=== PATIENT | female | born 1950 | race Caucasian/White ===

== ENCOUNTER 2017-02-23 03:29 | Emergency (ER) | payer OTHER ==
[~2017-02-23] VITALS: Ht 162.6 cm; Wt 69.5 kg
[~2017-02-23 03:29] MED LIST: IMIPRAMINE HCL25 MG PO; NEXIUM40 MG PO; RANITIDINE HCL150 MG PO; TOPIRAMATE25 MG PO; TYLENOL WITH C1 EACH PO
[2017-02-23 04:28] LABS: ALBUMIN 3.8 g/dL (3.2-4.8)
[2017-02-23 04:29] LABS: CHLORIDE 103 mEq/L (99-109); POTASSIUM 3.9 mEq/L (3.7-5.4); SODIUM 138 mEq/L (136-147)
[2017-02-23 04:30] LABS: PLATELET COUNT 723 K/uL (156-360)
[2017-02-23 04:31] LABS: GLUCOSE 195 mg/dL (70-99); TOTAL PROTEIN 7.3 g/dL (6.4-8.3)
[2017-02-23 04:33] LABS: TOTAL BILIRUBIN 0.4 mg/dL (0.0-1.0)
[2017-02-23 04:33] LABS: HEMATOCRIT 39.1 % (36.0-46.0); HEMOGLOBIN 13.1 G/DL (11.9-15.5); MCH 30.5 PG (29.0-34.0); MCHC 33.5 G/DL (30.0-36.0); MCV 91.1 FL (83-99); RBC DIS.WIDTH-CV 13.5 % (11.8-14.6); RBC DIS.WIDTH-SD 44.9 % (39-53); RED BLOOD COUNT 4.29 M/uL (3.80-5.20); WHITE BLOOD COUNT 41.5 K/uL (4.1-10.2)
[2017-02-23 04:34] LABS: ALKALINE PHOSPHATASE 97 IU/L (3-129)
[2017-02-23 04:35] LABS: CREATININE 0.9 mg/dL (0.6-1.3); GFR ESTIMATE (CALCULATED) > 59 mL/min/
[2017-02-23 04:36] LABS: AST (GOT) 22 IU/L (2-34); UREA NITROGEN (BUN) 13 mg/dL (9-23)
[2017-02-23 04:37] LABS: ALT (GPT) 21 IU/L (3-49)
[2017-02-23 04:38] LABS: LIPASE 21 U/L (1.0-51.0)
[2017-02-23 08:02] VITALS: BP 133/83
== END 2017-02-23 08:23 | disposition short-term general hospital (02) ==
LOC: EME 03:29
PROVIDERS: Emergency Medicine
DX: G89.18 Other acute postprocedural pain (principal); R10.9 Unspecified abdominal pain; D72.829 Elevated white blood cell count, unspecified; K56.7 Ileus, unspecified; K86.3 Pseudocyst of pancreas; E87.2 Acidosis; Z90.81 Acquired absence of spleen; Z90.411 Acquired partial absence of pancreas; Z98.890 Other specified postprocedural states; Z85.3 Personal history of malignant neoplasm of breast; Z90.11 Acquired absence of right breast and nipple; Z90.49 Acquired absence of other specified parts of digestive tract; Z90.710 Acquired absence of both cervix and uterus; R00.0 Tachycardia, unspecified; R03.0 Elevated blood-pressure reading, without diagnosis of hypertension; Z87.891 Personal history of nicotine dependence
CPT/HCPCS: 74177; 80053; 83605; 83690; 85027; 87040; 99281; 99285; J0696; J2270; J2405; J7030; S0030